=== PATIENT | female | born 1985 ===

== ENCOUNTER 2023-06-01 09:23 | Inpatient (IN) | payer OTHER ==
[~2023-06-01] VITALS: Ht 162.6 cm; Wt 61.2 kg
== END 2023-06-03 12:49 | disposition home or self-care (01) | DRG 743 ==
LOC: CIR.AMB 09:23 → O/R 18:45 → OB/GYN 18:45
PROVIDERS: ADMIT Obstetrics & Gynecology; ATTEND Obstetrics & Gynecology
PROC: 0UB20ZZ Excision of Bilateral Ovaries, Open Approach (ICD-10-PCS; principal; 2023-06-01 15:00)
DX: N83.12 Corpus luteum cyst of left ovary (principal); N83.11 Corpus luteum cyst of right ovary; N80.103 Endometriosis of bilateral ovaries, unspecified depth; Z20.822 Contact with and (suspected) exposure to COVID-19

== ENCOUNTER 2023-07-17 11:26 | Emergency (ER) | payer OTHER ==
[~2023-07-17] VITALS: Ht 162.6 cm; Wt 61.2 kg
== END 2023-07-17 13:08 | disposition left against medical advice (07) ==
LOC: ER 11:26
DX: L08.9 Local infection of the skin and subcutaneous tissue, unspecified (principal)